=== PATIENT | male | born 1975 | race Caucasian/White ===

== ENCOUNTER → 2023-07-11 | Outpatient (CLI) | payer OTHER ==
[2023-07-11 20:29] LABS: Basophils # (A) 0.05 X 10*3/uL (0.00-0.10); Basophils % (A) 0.5 %; Eosinophils # (A) 0.14 X 10*3/uL (0.04-0.35); Eosinophils % (A) 1.4 %; HCT 47.4 % (39.6-50.0); HGB 16.5 g/dL (13.0-17.0); Lymphocytes # (A) 1.86 X 10*3/uL (0.90-5.00); Lymphocytes % (A) 18.9 %; MCH 29.8 pg (27.0-32.0); MCHC 34.8 g/dL (32.0-37.0); MCV 85.6 FL (80.0-97.0); Mean Platelet Volume 9.7 FL (9.5-12.2); Monocytes # (A) 0.52 X 10*3/uL (0.20-1.00); Monocytes % (A) 5.3 %; NRBC Per 100 WBC 0 X 10*3/uL (0.00-0.01); Neutrophils % (A) 73.2 %; Platelet Count 292 X 10*3/uL (140-440); RBC 5.54 X 10*6/uL (4.40-5.60); RDW 13.4 % (11.5-14.5); WBC 9.84 X 10*3/uL (4.50-10.00)
[2023-07-12 00:35] LABS: ALT 56 U/L (10-49); AST 32 U/L (14-35); Albumin 4.6 g/dL (3.8-4.9); Albumin/Globulin Ratio 1.64 Ratio (1.60-3.17); Alkaline Phosphatase 98 U/L (41-126); Calcium 10.3 mg/dL (8.7-10.3); Carbon Dioxide 21.9 mmol/L (21.6-31.8); Chloride 104 mmol/L (96-109); Globulin 2.8 g/dL (1.6-3.3); Glucose 125 mg/dL (70-110); Potassium 4.3 mmol/L (3.5-5.5); Prostate Specific Antigen 0.32 ng/mL (0.000-2.500); Sodium 140 mmol/L (135-145); Total Bilirubin 0.3 mg/dL (0.3-1.2); Total Protein 7.4 g/dL (6.2-8.2)
== END | disposition home or self-care (01) ==
LOC: LABWHC1 14:24
PROVIDERS: ATTEND Family Medicine
DX: Z12.5 Encounter for screening for malignant neoplasm of prostate (principal); R00.2 Palpitations
CPT/HCPCS: 36415; 80053; 83735; 84153; 84439; 84443; 84480; 85025; 93005

== ENCOUNTER 2023-07-27 12:39 | Emergency (ER) | payer OTHER ==
[2023-07-27 12:56] VITALS: TEMP 98.2
[2023-07-27] MEDS: SODIUM CHLORIDE 0.9% 1,000 ML IV STA ×2 (13:09→13:10)
--- NOTE | 2023-07-27 13:15 | ED ---
General Adult HPI - General Chief complaint: Dizziness Stated complaint: Dizziness Time Seen by Provider: 07/27/23 12:51 Source: patient, RN notes reviewed, old records reviewed Mode of arrival: EMS Limitations: no limitations - History of Present Illness Initial comments: Patient is a 48-year-old male who presents emergency department complaining of dizziness, lightheadedness. Patient states he also has intermittent palpitations. States this has happened previously due to his blood pressure medications. Have been decreased. Is on Minipress as well as losartan but is uncertain of the dosages. States he usually takes his blood pressure meds in the morning and then waits for a little bit for them to kick in and then proceeds upon his day. States that he had doctors appointments today so he left immediately after taking them. While at the doctor's office, he felt lightheaded and had an episode of emesis. They found his blood pressure was low. Transferred him here for further evaluation. He currently denies any acute complaints at this time presents for further evaluation at this time. Has been told he has sleep apnea.. States he does occasionally use marijuana Gummies which he used yesterday. Denies any other drug use. Denies chest pain or shortness of breath. Denies any abdominal pain, nausea, vomiting, fevers, chills, cough. Has no other acute complaints. States lightheadedness is resolved.Denies falling or hitting his head. - Related Data Home Medications Medication Instructions Recorded Confirmed Citalopram Hydrobromide [CeleXA] 20 mg PO DIRECTED 07/27/23 07/27/23 Losartan [Cozaar] 25 mg PO DIRECTED 07/27/23 07/27/23 Magnesium (Unknown Strength) 1 tab PO DAILY 07/27/23 07/27/23 Minipress (Unknown Strength) 1 dose PO DIRECTED 07/27/23 07/27/23 Multivitamins, Thera [Multivitamin 1 tab PO DAILY 07/27/23 07/27/23 (formulary)] Myrbetriq (Unknown Strength) 1 dose PO DIRECTED 07/27/23 07/27/23 Potassium Gluconate 90 mg PO DAILY 07/27/23 07/27/23 Unknown Mood Medication 1 dose PO DIRECTED 07/27/23 07/27/23 Allergies Allergy/AdvReac Type Severity Reaction Status Date / Time No Known Allergies Allergy Verified 07/27/23 12:47 Review of Systems ROS Statement: Those systems with pertinent positive or pertinent negative responses have been documented in the HPI. Review of Systems: CONST: Denies fever EYES: Denies blurry vision ENT: Denies nasal congestion C/V: Denies Chest pain RESP: Denies shortness of breath GI: Denies abdominal pain : Denies dysuria SKIN: Denies rash. MSK: Denies joint pain. NEURO: Denies headache ROS Other: All systems not noted in ROS Statement are negative. Past Medical History Past Medical History: Atrial Fibrillation, Hypertension History of Any Multi-Drug Resistant Organisms: None Reported Past Surgical History: Back Surgery Past Psychological History: Anxiety, Bipolar, Depression, PTSD Smoking Status: Vaper Past Alcohol Use History: Rare Past Drug Use History: Marijuana General Exam - General Exam Comments Initial Comments: General: Appears in no acute distress. HEAD: Normal with no signs of head trauma. EYES: PERRLA, EOMI, conjunctiva normal, no discharge. ENT: Hearing grossly intact, normal oropharynx. RESPIRATORY: Clear breath sounds bilaterally. No wheezes, rales, or rhonchi. Hypoxia when sleeping. Resolves when awake. Could be secondary to sleep apnea. C/V: Regular rate and rhythm. S1 and S2 auscultated, no edema, peripheral pulses 2+ and intact throughout hypotension with systolics in the upper 70s. ABD: Abd is soft, nontender, nondistended EXT: Normal range of motion, no obvious deformity SKIN: No rashes or lesions observed on exposed skin. NEURO: Alert and oriented x 4. Cranial nerves II-XII intact. No focal sensory or strength deficits. Limitations: no limitations Course Vital Signs 07/27/23 07/27/23 07/27/23 12:44 12:52 13:40 Temperature 98.2 F Pulse Rate 75 77 76 Respiratory 16 18 21 Rate Blood Pressure 75/53 79/52 101/62 O2 Sat by Pulse 90 L 93 L 97 Oximetry 07/27/23 07/27/23 07/27/23 13:45 14:00 14:15 Temperature Pulse Rate 76 80 83 Respiratory 16 16 19 Rate Blood Pressure 101/62 106/74 121/73 O2 Sat by Pulse 98 96 99 Oximetry 07/27/23 07/27/23 07/27/23 14:29 14:30 14:45 Temperature Pulse Rate 92 82 Respiratory 24 18 Rate Blood Pressure 119/82 119/82 119/73 O2 Sat by Pulse 95 95 96 Oximetry Medical Decision Making - Medical Decision Making Was pt. sent in by a medical professional or institution (, [facility], HAND INSERTER OPERATOR, urgent care, hospital, or fdc...) When possible be specific @ -No Did you speak to anyone other than the patient for history (EMS, parent, family, police, friend...)? What history was obtained from this source @ -No Did you review nursing and triage notes (agree or disagree)? Why? @ -I reviewed and agree with nursing and triage notes Were old charts reviewed (outside hosp., previous admission, EMS record, old EKG, old radiological studies, urgent care reports/EKG's, fdc records)? Report findings @ -No old charts were reviewed Differential Diagnosis (chest pain, altered mental status, abdominal pain women, abdominal pain men, vaginal bleeding, weakness, fever, dyspnea, syncope, headache, dizziness, GI bleed, back pain, seizure, CVA, palpatations, mental h ealth, musculoskeletal)? @ -Differential Dizziness: Benign paroxysmal positional Vertigo, Menieres disease, otitis media, acoustic neuroma, vertebrobasilar insufficiency, cerebellar stroke, encephalitis, hypovolemic, arrhythmia, coronary artery syndrome, anemia, this is not meant to be an all-inclusive list EKG interpreted by me (3pts min.). @ -As above X-rays interpreted by me (1pt min.). @ -None done CT interpreted by me (1pt min.). @ -CT angiogram of the chest negative for pulmonary embolism or other acute intrathoracic process. U/S interpreted by me (1pt. min.). @ -None done What testing was considered but not performed or refused? (CT, X-rays, U/S, labs)? Why? @ -None What meds were considered but not given or refused? Why? @ -None Did you discuss the management of the patient with other professionals (professionals i.e. L[facility]AR Morin, HAND INSERTER OPERATOR, lab, RT, psych nurse, social services aide, data entry assistant, teacher, policy officer, hospice case manager)? Give summary @ -No Was smoking cessation discussed for >3mins.? @ -No Was critical care preformed (if so, how long)? @ -No Were there social determinants of health that impacted care today? How? (Homelessness, low income, unemployed, alcoholism, drug addiction, transportation, low edu. Level, literacy, decrease access to med. care, retirement, rehab)? @ -No Was there de-escalation of care discussed even if they declined (Discuss DNR or withdrawal of care, Hospice)? DNR status @ -No What co-morbidities impacted this encounter? (DM, HTN, Smoking, COPD, CAD, Cancer, CVA, ARF, Chemo, Hep., AIDS, mental health diagnosis, sleep apnea, morbid obesity)? @ -None Was patient admitted / discharged? Hospital course, mention meds given and route, prescriptions, significant lab abnormalities, going to OR and other pertinent info. @ -Based on the patient's presentation and physical exam, presents with hypotension of unknown etiology. Patient currently has no complaints at this time. This has happened in the past for the patient and it was attributed to his blood pressure medications which were reduced. Currently has no acute complaints. We will obtain broad workup at this time. Patient was in agreement this plan. Patient was placed on 2 L nasal cannula oxygen because he is mildly hypoxic when sleeping in the upper 80s to 90% however when awake and talking, he ranges from 95 to 100%. Patient was in agreement with this plan. EKG shows no signs of acute ischemia.Patient's imaging negative for PE or other acute intrathoracic process. Laboratory studies are remarkable for mild increased lactic acid of 2.4 likely secondary to dehydration. Troponin undetectable. BNP undetectable. D-dimer within acceptable limits. UDS positive for benzos and marijuana. Following 2 L fluid bolus, patient's vital signs are improved. Blood pressure is within acceptable limits. He is ambulating without issues and would like to go home. He has no symptoms at this time. I discussed his blood pressure medications with him as this seems to be a recurrent issue and he already agreed with his PCP who is at today not to continue with the Minipress at this time. He will follow-up with his PCP for further guidance on antihypertensives. He otherwise would like to go home and I believe this is reasonable.Patient's blood pressure has improved. Patient is off oxygen and saturating normally. He has no acute complaints and has been ambulating throughout the department without any complaints. I instructed the patient to follow up with their PCP in the next 1-3 days. I explained that the patient should return to the emergency department if they experience any worsening symptoms. Strict return precautions were discussed with the patient. The patient expressed understanding of these instructions. I answered all questions that the patient had. The patient was discharged home in [good] condition with their prescriptions and follow up information. UDS returned positive for benzodiazepines as well as THC. Undiagnosed new problem with uncertain prognosis? @ -No Drug Therapy requiring intensive monitoring for toxicity (Heparin, Nitro, Ins ulin, Cardizem)? @ -No Were any procedures done? @ -No Diagnosis/symptom? @ -Medication side effect, lightheadedness, dehydration Acute, or Chronic, or Acute on Chronic? @ -Acute Uncomplicated (without systemic symptoms) or Complicated (systemic symptoms)? @ -Complicated Side effects of treatment? @ -Yes, antihypertensive medication caused hypotension for the patient. Exacerbation, Progression, or Severe Exacerbation] @ -No Poses a threat to life or bodily function? @ -Unlikely - Lab Data Result diagrams: 07/27/23 13:13 07/27/23 13:13 Lab Results 07/27/23 07/27/23 07/27/23 Range/Units 13:13 13:13 13:13 WBC 5.7 (3.8-10.6) k/uL RBC 4.63 (4.30-5.90) m/uL Hgb 14.0 (13.0-17.5) gm/dL Hct 41.9 (39.0-53.0) % MCV 90.5 (80.0-100.0) fL MCH 30.1 (25.0-35.0) pg MCHC 33.3 (31.0-37.0) g/dL RDW 13.2 (11.5-15.5) % Plt Count 157 (150-450) k/uL MPV 7.1 Neutrophils % 71 % Lymphocytes % 23 % Monocytes % 3 % Eosinophils % 2 % Basophils % 1 % Neutrophils # 4.0 (1.3-7.7) k/uL Lymphocytes # 1.3 (1.0-4.8) k/uL Monocytes # 0.2 (0-1.0) k/uL Eosinophils # 0.1 (0-0.7) k/uL Basophils # 0.0 (0-0.2) k/uL PT 11.1 (10.0-12.5) sec INR 1.0 (<1.2) APTT 23.1 (22.0-30.0) sec D-Dimer 0.34 (<0.60) mg/L FEU Sodium 135 L (137-145) mmol/L Potassium 3.9 (3.5-5.1) mmol/L Chloride 106 (98-107) mmol/L Carbon Dioxide 21 L (22-30) mmol/L Anion Gap 8 mmol/L BUN 14 (9-20) mg/dL Creatinine 0.88 (0.66-1.25) mg/dL Est GFR (CKD-EPI)AfAm >90 (>60 ml/min/1.73 sqM) Est GFR (CKD-EPI)NonAf >90 (>60 ml/min/1.73 sqM) Glucose 174 H (74-99) mg/dL Plasma Lactic Acid Joni (0.7-2.0) mmol/L Calcium 8.3 L (8.4-10.2) mg/dL Magnesium 1.7 (1.6-2.3) mg/dL Total Bilirubin 0.5 (0.2-1.3) mg/dL AST 29 (17-59) U/L ALT 29 (4-49) U/L Alkaline Phosphatase 76 (38-126) U/L Ammonia (<30) umol/L Troponin I (0.000-0.034) ng/mL NT-Pro-B Natriuret Pep <20 pg/mL Total Protein 6.2 L (6.3-8.2) g/dL Albumin 3.6 (3.5-5.0) g/dL Urine Color Urine Appearance (Clear) Urine pH (5.0-8.0) Ur Specific [place] (1.001-1.035) Urine Protein (Negative) Urine Glucose (UA) (Negative) Urine Ketones (Negative) Urine Blood (Negative) Urine Nitrite (Negative) Urine Bilirubin (Negative) Urine Urobilinogen (<2.0) mg/dL Ur Leukocyte Esterase (Negative) Urine Opiates Screen (NotDetected) Ur Oxycodone Screen (NotDetected) Urine Methadone Screen (NotDetected) Ur Barbiturates Screen (NotDetected) U Tricyclic Antidepress (NotDetected) Ur Phencyclidine Scrn (NotDetected) Ur Amphetamines Screen (NotDetected) U Methamphetamines Scrn (NotDetected) U Benzodiazepines Scrn (NotDetected) Urine Cocaine Screen (NotDetected) U Marijuana (THC) Screen (NotDetected) Serum Alcohol <10 mg/dL Influenza Type A (PCR) (Not Detectd) Influenza Type B (PCR) (Not Detectd) RSV (PCR) (Not Detectd) SARS-CoV-2 (PCR) (Not Detectd) 07/27/23 07/27/23 07/27/23 Range/Units 13:13 13:13 13:13 WBC (3.8-10.6) k/uL RBC (4.30-5.90) m/uL Hgb (13.0-17.5) gm/dL Hct (39.0-53.0) % MCV (80.0-100.0) fL MCH (25.0-35.0) pg MCHC (31.0-37.0) g/dL RDW (11.5-15.5) % Plt Count (150-450) k/uL MPV Neutrophils % % Lymphocytes % % Monocytes % % Eosinophils % % Basophils % % Neutrophils # (1.3-7.7) k/uL Lymphocytes # (1.0-4.8) k/uL Monocytes # (0-1.0) k/uL Eosinophils # (0-0.7) k/uL Basophils # (0-0.2) k/uL PT (10.0-12.5) sec INR (<1.2) APTT (22.0-30.0) sec D-Dimer (<0.60) mg/L FEU Sodium (137-145) mmol/L Potassium (3.5-5.1) mmol/L Chloride (98-107) mmol/L Carbon Dioxide (22-30) mmol/L Anion Gap mmol/L BUN (9-20) mg/dL Creatinine (0.66-1.25) mg/dL Est GFR (CKD-EPI)AfAm (>60 ml/min/1.73 sqM) Est GFR (CKD-EPI)NonAf (>60 ml/min/1.73 sqM) Glucose (74-99) mg/dL Plasma Lactic Acid Joni 2.4 H* (0.7-2.0) mmol/L Calcium (8.4-10.2) mg/dL Magnesium (1.6-2.3) mg/dL Total Bilirubin (0.2-1.3) mg/dL AST (17-59) U/L ALT (4-49) U/L Alkaline Phosphatase (38-126) U/L Ammonia 12 (<30) umol/L Troponin I <0.012 (0.000-0.034) ng/mL NT-Pro-B Natriuret Pep pg/mL Total Protein (6.3-8.2) g/dL Albumin (3.5-5.0) g/dL Urine Color Urine Appearance (Clear) Urine pH (5.0-8.0) Ur Specific [place] (1.001-1.035) Urine Protein (Negative) Urine Glucose (UA) (Negative) Urine Ketones (Negative) Urine Blood (Negative) Urine Nitrite (Negative) Urine Bilirubin (Negative) Urine Urobilinogen (<2.0) mg/dL Ur Leukocyte Esterase (Negative) Urine Opiates Screen (NotDetected) Ur Oxycodone Screen (NotDetected) Urine Methadone Screen (NotDetected) Ur Barbiturates Screen (NotDetected) U Tricyclic Antidepress (NotDetected) Ur Phencyclidine Scrn (NotDetected) Ur Amphetamines Screen (NotDetected) U Methamphetamines Scrn (NotDetected) U Benzodiazepines Scrn (NotDetected) Urine Cocaine Screen (NotDetected) U Marijuana (THC) Screen (NotDetected) Serum Alcohol mg/dL Influenza Type A (PCR) Not Detected (Not Detectd) Influenza Type B (PCR) Not Detected (Not Detectd) RSV (PCR) Not Detected (Not Detectd) SARS-CoV-2 (PCR) Not Detected (Not Detectd) 07/27/23 07/27/23 Range/Units 14:38 14:38 WBC (3.8-10.6) k/uL RBC (4.30-5.90) m/uL Hgb (13.0-17.5) gm/dL Hct (39.0-53.0) % MCV (80.0-100.0) fL MCH (25.0-35.0) pg MCHC (31.0-37.0) g/dL RDW (11.5-15.5) % Plt Count (150-450) k/uL MPV Neutrophils % % Lymphocytes % % Monocytes % % Eosinophils % % Basophils % % Neutrophils # (1.3-7.7) k/uL Lymphocytes # (1.0-4.8) k/uL Monocytes # (0-1.0) k/uL Eosinophils # (0-0.7) k/uL Basophils # (0-0.2) k/uL PT (10.0-12.5) sec INR (<1.2) APTT (22.0-30.0) sec D-Dimer (<0.60) mg/L FEU Sodium (137-145) mmol/L Potassium (3.5-5.1) mmol/L Chloride (98-107) mmol/L Carbon Dioxide (22-30) mmol/L Anion Gap mmol/L BUN (9-20) mg/dL Creatinine (0.66-1.25) mg/dL Est GFR (CKD-EPI)AfAm (>60 ml/min/1.73 sqM) Est GFR (CKD-EPI)NonAf (>60 ml/min/1.73 sqM) Glucose (74-99) mg/dL Plasma Lactic Acid Joni (0.7-2.0) mmol/L Calcium (8.4-10.2) mg/dL Magnesium (1.6-2.3) mg/dL Total Bilirubin (0.2-1.3) mg/dL AST (17-59) U/L ALT (4-49) U/L Alkaline Phosphatase (38-126) U/L Ammonia (<30) umol/L Troponin I (0.000-0.034) ng/mL NT-Pro-B Natriuret Pep pg/mL Total Protein (6.3-8.2) g/dL Albumin (3.5-5.0) g/dL Urine Color Colorless Urine Appearance Clear (Clear) Urine pH 6.5 (5.0-8.0) Ur Specific [place] 1.038 H (1.001-1.035) Urine Protein Negative (Negative) Urine Glucose (UA) Negative (Negative) Urine Ketones Negative (Negative) Urine Blood Negative (Negative) Urine Nitrite Negative (Negative) Urine Bilirubin Negative (Negative) Urine Urobilinogen <2.0 (<2.0) mg/dL Ur Leukocyte Esterase Negative (Negative) Urine Opiates Screen Not Detected (NotDetected) Ur Oxycodone Screen Not Detected (NotDetected) Urine Methadone Screen Not Detected (NotDetected) Ur Barbiturates Screen Not Detected (NotDetected) U Tricyclic Antidepress Not Detected (NotDetected) Ur Phencyclidine Scrn Not Detected (NotDetected) Ur Amphetamines Screen Not Detected (NotDetected) U Methamphetamines Scrn Not Detected (NotDetected) U Benzodiazepines Scrn Detected H (NotDetected) Urine Cocaine Screen Not Detected (NotDetected) U Marijuana (THC) Screen Detected H (NotDetected) Serum Alcohol mg/dL Influenza Type A (PCR) (Not Detectd) Influenza Type B (PCR) (Not Detectd) RSV (PCR) (Not Detectd) SARS-CoV-2 (PCR) (Not Detectd) - EKG Data -: EKG Interpreted by Me EKG Comments: 12-lead Electrocardiogram Interpretation Note EKG was reviewed and interpreted by myself. 12-lead ECG performed at 1255 is interpreted by me as revealing normal sinus rhythm at a rate of 76 beats per minute. [place] is normal. [place] interval is 170 ms, QRS duration is 109 ms, QTc is 447 ms.. There were no ST or T wave abnormalities to suggest myocardial ischemia or injury. R wave progression across the precordium was satisfactory. By my interpretation this EKG is non-diagnostic for acute ischemia. Disposition Clinical Impression: Lightheadedness, Medication side effect, Dehydration Disposition: HOME SELF-CARE Condition: Good Instructions (If sedation given, give patient instructions): Dizziness (ED) Is patient prescribed a controlled substance at d/c from ED?: No Referrals: [facility],Clinic [Primary Care Provider] - 1-2 days Time of Disposition: 14:51
[2023-07-27 13:19] LABS: Basophils % (A) 1 %; Eosinophils # (A) 0.1 k/uL (0-0.7); Eosinophils % (A) 2 %; HCT 41.9 % (39.0-53.0); Lymphocytes # (A) 1.3 k/uL (1.0-4.8); Lymphocytes % (A) 23 %; MCH 30.1 pg (25.0-35.0); MCHC 33.3 g/dL (31.0-37.0); MCV 90.5 fL (80.0-100.0); Mean Platelet Volume 7.1; Monocytes # (A) 0.2 k/uL (0-1.0); Monocytes % (A) 3 %; Neutrophils % (A) 71 %; Platelet Count 157 k/uL (150-450); RBC 4.63 m/uL (4.30-5.90); RDW 13.2 % (11.5-15.5); WBC 5.7 k/uL (3.8-10.6)
[2023-07-27 13:33] LABS: Partial Thromboplastin Time 23.1 sec (22.0-30.0); Prothrombin Time 11.1 sec (10.0-12.5)
[2023-07-27 13:35] LABS: ALT 29 U/L (4-49); AST 29 U/L (17-59); African American GFR (CKD) >90 (>60 ml/min/1.73 sqM); Albumin 3.6 g/dL (3.5-5.0); Alcohol <10 mg/dL; Alkaline Phosphatase 76 U/L (38-126); Anion Gap 8 mmol/L; Blood Urea Nitrogen 14 mg/dL (9-20); Calcium 8.3 mg/dL (8.4-10.2); Carbon Dioxide 21 mmol/L (22-30); Chloride 106 mmol/L (98-107); Glucose 174 mg/dL (74-99); Magnesium 1.7 mg/dL (1.6-2.3); Non-African American GFR(CKD) >90 (>60 ml/min/1.73 sqM); Potassium 3.9 mmol/L (3.5-5.1); Sodium 135 mmol/L (137-145); Total Bilirubin 0.5 mg/dL (0.2-1.3); Total Protein 6.2 g/dL (6.3-8.2)
[2023-07-27 13:43] LABS: NT-Pro-B-Type Natriuretic Pept <20 pg/mL
--- NOTE | 2023-07-27 13:56 | CT ---
CTA CHEST EXAMINATION TYPE: CT chest angio for PE DATE OF EXAM: 07/27/2023 INDICATION: Eval for PE CT DLP: 692.8 mGycm, Automated exposure control for dose reduction was used. CONTRAST: Patient injected with 100 ml mL of Isovue 370. COMPARISON: None TECHNIQUE: CT of the chest is performed on a spiral scan at 2 mm thick sections. Study is performed with intravenous contrast timed for evaluation for pulmonary embolism. This will limit additional po rtions of the evaluation. 3-D MIP images reconstructed by the technologist are reviewed on the compu ter in the coronal and sagittal planes. FINDINGS: No persistent filling defects are evident to suggest an acute pulmonary embolism. No mediastinal or hilar adenopathy enlarged by CT criteria is evident. The ascending aorta diameter at the level of the main pulmonary artery is 3.0 cm. The main pulmonary artery diameter at the bifurcation is 2.7 cm. Lung windows are clear. Limited CT sections were through the upper abdomen. Upper abdomen appears unremarkable. IMPRESSION: 1. No acute pulmonary embolism. 2. No acute pulmonary process.
[2023-07-27 14:06] LABS: Lactic Acid, Venous 2.4 mmol/L (0.7-2.0)
[2023-07-27 14:47] LABS: Appearance,Urine Clear (Clear); Bilirubin,Urine Negative (Negative); Blood,Urine Negative (Negative); Color,Urine Colorless; Glucose,Urine (UA) Negative (Negative); Ketones,Urine Negative (Negative); Leukocyte Esterase,Urine Negative (Negative); Nitrite,Urine Negative (Negative); PH, Urine 6.5 (5.0-8.0); Protein,Urine Negative (Negative); Specific Gravity,Urine 1.038 (1.001-1.035); Urobilinogen,Urine <2.0 mg/dL (<2.0)
[2023-07-27 14:58] LABS: Amphetamine Screen,Urine Not Detected (NotDetected); Barbiturate Screen,Urine Not Detected (NotDetected); Benzodiazepines Screen,Urine Detected (NotDetected); Cocaine Screen,Urine Not Detected (NotDetected); Methadone Screen, Urine Not Detected (NotDetected); Opiate Screen,Urine Not Detected (NotDetected); Oxycodone Screen, Urine Not Detected (NotDetected); Phencyclidine Screen,Urine Not Detected (NotDetected); Tricyclic Antidepressant,Urine Not Detected (NotDetected); Urn Cannabinoid Scrn Detected (NotDetected)
[2023-07-27 15:12] VITALS: BP 119/73; PULSE 82; RESP 18
== END 2023-07-27 15:00 | disposition home or self-care (01) ==
LOC: EC 12:39
DX: E86.0 Dehydration (principal); T50.905A Adverse effect of unspecified drugs, medicaments and biological substances, initial encounter; I95.9 Hypotension, unspecified; F17.290 Nicotine dependence, other tobacco product, uncomplicated; Z11.52 Encounter for screening for COVID-19; Z79.899 Other long term (current) drug therapy
CPT/HCPCS: 36415; 93005; 85379; 83880; 80053; 82140; 83605; 83735; 84484; 85025; 85610; 85730; 81003; 80306; 80320; 87636; 71275; 99285; 96360; Q9967

== ENCOUNTER 2023-10-31 13:49 | Observation (INO) | payer OTHER ==
[2023-10-31 14:12] LABS: Basophils # (A) 0.1 k/uL (0-0.2); Basophils % (A) 1 %; Eosinophils # (A) 0.1 k/uL (0-0.7); Eosinophils % (A) 1 %; HCT 49.8 % (39.0-53.0); HGB 16.9 gm/dL (13.0-17.5); Lymphocytes % (A) 21 %; MCV 88.5 fL (80.0-100.0); Mean Platelet Volume 6.9; Monocytes # (A) 0.5 k/uL (0-1.0); Monocytes % (A) 6 %; Neutrophils # (A) 6.6 k/uL (1.3-7.7); Neutrophils % (A) 70 %; Platelet Count 296 k/uL (150-450); RBC 5.63 m/uL (4.30-5.90); RDW 12.9 % (11.5-15.5); WBC 9.4 k/uL (3.8-10.6)
[2023-10-31 14:26] LABS: INR 0.9 (<1.2); Partial Thromboplastin Time 24.7 sec (22.0-30.0); Prothrombin Time 10.5 sec (10.0-12.5)
--- NOTE | 2023-10-31 14:26 | XR ---
EXAMINATION TYPE: XR chest 2V DATE OF EXAM: 10/31/2023 2:16 PM CLINICAL INDICATION:Male, 48 years old with history of Chest Pain; [facility] COMPARISON: No recent comparisons. TECHNIQUE: XR chest 2V Frontal and lateral views of the chest. FINDINGS: Lungs/Pleura: There is no evidence of pleural effusion, focal consolidation, or pneumothorax. Pulmonary vascularity: Unremarkable. Heart/mediastinum: Cardiomediastinal silhouette is unremarkable. Musculoskeletal: No acute osseous pathology. Other findings: None Lines/Tubes: IMPRESSION: No acute cardiopulmonary disease/process.
[2023-10-31 14:48] LABS: ALT 47 U/L (4-49); African American GFR (CKD) >90 (>60 ml/min/1.73 sqM); Anion Gap 9 mmol/L; Blood Urea Nitrogen 13 mg/dL (9-20); Calcium 9.2 mg/dL (8.4-10.2); Carbon Dioxide 18 mmol/L (22-30); Chloride 111 mmol/L (98-107); Glucose 105 mg/dL (74-99); Magnesium 2.1 mg/dL (1.6-2.3); Non-African American GFR(CKD) >90 (>60 ml/min/1.73 sqM); Sodium 138 mmol/L (137-145); Total Bilirubin 0.9 mg/dL (0.2-1.3)
--- NOTE | 2023-10-31 14:50 | ED ---
Chest Pain HPI - General Chief Complaint: Chest Pain Stated Complaint: Tachy,low O2 Time Seen by Provider: 10/31/23 14:01 Source: patient, RN notes reviewed Mode of arrival: ambulatory Limitations: no limitations - History of Present Illness Initial Comments: This is a 48-year-old male with a past medical history of anxiety and hypertension who presents emergency department chief complaint of chest pain, shortness of breath, heart palpitations over the past few days. Patient states that since Monday he will experience intermittent left sided chest pain that will last for a few minutes and pain of his left hand during this time. He also states that he has been experiencing shortness of breath as well is intermittent either with activity or at rest. He denies personal history of TX, CVA, DVT or PE. Denies recent prolonged travel, bilateral lower extremity edema or pain. He is on ACEi and CCB for blood pressure. - Related Data Home Medications Medication Instructions Recorded Confirmed Citalopram Hydrobromide [CeleXA] 20 mg PO HS 07/27/23 10/31/23 ARIPiprazole [Abilify] 5 mg PO HS 10/31/23 10/31/23 Losartan [Cozaar] 50 mg PO HS 10/31/23 10/31/23 dilTIAZem HCL 120 mg PO HS 10/31/23 10/31/23 Allergies Allergy/AdvReac Type Severity Reaction Status Date / Time No Known Allergies Allergy Verified 10/31/23 16:10 Review of Systems ROS Statement: Those systems with pertinent positive or pertinent negative responses have been documented in the HPI. ROS Other: All systems not noted in ROS Statement are negative. Past Medical History Past Medical History: Atrial Fibrillation, Hypertension History of Any Multi-Drug Resistant Organisms: None Reported Past Surgical History: Back Surgery Past Psychological History: Anxiety, Bipolar, Depression, PTSD Smoking Status: Never smoker, Vaper Past Alcohol Use History: None Reported Past Drug Use History: Marijuana General Exam Limitations: no limitations General appearance: alert, in no apparent distress Head exam: Present: atraumatic, normocephalic, normal inspection Eye exam: Present: normal appearance, PERRL, EOMI. Absent: scleral icterus, conjunctival injection, periorbital swelling ENT exam: Present: normal exam, mucous membranes moist Neck exam: Present: normal inspection. Absent: tenderness, meningismus, lymphadenopathy Respiratory exam: Present: normal lung sounds bilaterally. Absent: respiratory distress, wheezes, rales, rhonchi, stridor Cardiovascular Exam: Present: regular rate, normal rhythm, normal heart sounds. Absent: systolic murmur, diastolic murmur, rubs, gallop, clicks GI/Abdominal exam: Present: soft, normal bowel sounds. Absent: distended, tenderness, guarding, rebound, rigid Extremities exam: Present: normal inspection, full ROM, normal capillary refill. Absent: tenderness, pedal edema, joint swelling, calf tenderness Back exam: Present: normal inspection Neurological exam: Present: alert, oriented X3, CN II-XII intact Psychiatric exam: Present: normal affect, normal mood Skin exam: Present: warm, dry, intact, normal color. Absent: rash Course Vital Signs 10/31/23 10/31/23 10/31/23 13:54 15:05 15:18 Temperature 98.2 F Pulse Rate 100 98 81 Respiratory 18 16 16 Rate Blood Pressure 139/96 167/109 168/122 O2 Sat by Pulse 97 98 95 Oximetry 10/31/23 10/31/23 15:49 16:33 Temperature Pulse Rate 81 Respiratory 18 Rate Blood Pressure 139/96 118/90 O2 Sat by Pulse 97 Oximetry Chest Pain MDM - MDM Was pt. sent in by a medical professional or institution (Dr. PA, CONCRETE PAVING SUPERVISOR, urgent care, hospital, or fci...) When possible be specific @ -No Did you speak to anyone other than the patient for history (EMS, parent, family, police, friend...)? What history was obtained from this source @ -No Did you review nursing and triage notes (agree or disagree)? Why? @ -I reviewed and agree with nursing and triage notes Were old charts reviewed (outside hosp., previous admission, EMS record, old EKG, old radiological studies, urgent care reports/EKG's, fci records)? Report findings @ -No old charts were reviewed Differential Diagnosis (chest pain, altered mental status, abdominal pain women, abdominal pain men, vaginal bleeding, weakness, fever, dyspnea, syncope, headache, dizziness, GI bleed, back pain, seizure, CVA, palpatations, mental health, musculoskeletal)? @ -Differential Chest Pain: Stable Angina, Unstable Angina, STEMI, NSTEMI Aortic Dissection, Pneumothorax, Musculoskeletal, Esophageal Spasm GERD, Cholecystitis, Pancreatitis, Zoster, this is not meant to be an all-inclusive list. EKG interpreted by me (3pts min.). @ -Completed at 1353, sinus rhythm, ventricular rate 97, MT interval 153, QTc 402. No acute signs of ischemia. X-rays interpreted by me (1pt min.). @ -Chest x-ray no acute cardiopulmonary process or disease. CT interpreted by me (1pt min.). @ -None done U/S interpreted by me (1pt. min.). @ -None done What testing was considered but not performed or refused? (CT, X-rays, U/S, labs)? Why? @ -None What meds were considered but not given or refused? Why? @ -None Did you discuss the management of the patient with other professionals (prof perdue i.e. , PA, CONCRETE PAVING SUPERVISOR, lab, RT, psych nurse, sexual assault social worker, stacker and sorter operator, teacher, community relations officer, caseworker intake)? Give summary @ -i spoke to mid-level provider with [facility], Destiny Castaneda, in regard to the patient's presentation and chest pain. Patient accepted for admission with cardiology on consult. Was smoking cessation discussed for >3mins.? @ -No Was critical care preformed (if so, how long)? @ -No Were there social determinants of health that impacted care today? How? (Homelessness, low income, unemployed, alcoholism, drug addiction, transportation, low edu. Level, literacy, decrease access to med. care, detention, rehab)? @ -No Was there de-escalation of care discussed even if they declined (Discuss DNR or withdrawal of care, Hospice)? DNR status @ -No What co-morbidities impacted this encounter? (DM, HTN, Smoking, COPD, CAD, Cancer, CVA, ARF, Chemo, Hep., AIDS, mental health diagnosis, sleep apnea, morbid obesity)? @ -None Was patient admitted / discharged? Hospital course, mention meds given and route, prescriptions, significant lab abnormalities, going to OR and other pertinent info. @ -admitted- 48-year-old male with chest pain. On patient's arrival to the emergency department he is found to be hypertensive with a BP of 139/96 and a pulse rate of 100. On my evaluation of the patient, he is still hypertensive with a blood pressure 160/122 and a heart rate of 81. Patient's chest pain is not reproducible on palpation. He states that he has had 2 episodes of this chest pain while he has been in the emergency department here. Better with an IV dose of metoprolol for HTN and tachycardia. EKG no acute ischemic changes. CBC within normal limits, coagulation profile including D-dimer within normal limits. Troponin nonelevated at less than 0.012. Mild hyperkalemia 5.6 which is a hemolyzed specimen. Evaluation, patient's blood pressure has responded to metoprolol. Patient's heart score is low however his symptoms of chest pain are concerning for ACS. He will be admitted to internal medicine with cardiology on consult for further evaluation. Case discussed with JOHNNY Dixon who accepts admission. Discussed with attending, Dr. Malone. Undiagnosed new problem with uncertain prognosis? @ -No Drug Therapy requiring intensive monitoring for toxicity (Heparin, Nitro, Insulin, Cardizem)? @ -No Were any procedures done? @ -No Diagnosis/symptom? @ -chest pain, hypertension Acute, or Chronic, or Acute on Chronic? @ -Acute Uncomplicated (without systemic symptoms) or Complicated (systemic symptoms)? @ -complicated Side effects of treatment? @ -No Exacerbation, Progression, or Severe Exacerbation? @ -No Poses a threat to life or bodily function? How? (Chest pain, [place], [place], pneumonia, PE, COPD, DKA, ARF, appy, cholecystitis, CVA, Diverticulitis, Homicidal, Suicidal, threat to staff... and all critical care pts) @ -potentially, Untreated ACS can lead to multiorgan system dysfunction and possible . Disposition Clinical Impression: Chest pain, Hypertension Disposition: ADMITTED IP TO THIS [facility] Condition: Good Decision to Admit Reason: Admit from EC Decision Date: 10/31/23 Decision Time: 17:03
[2023-10-31 14:52] LABS: AST 59 U/L (17-59); Albumin 4.8 g/dL (3.5-5.0); Alkaline Phosphatase 71 U/L (38-126); Potassium 5.6 mmol/L (3.5-5.1); Total Protein 7.9 g/dL (6.3-8.2)
[2023-10-31] MEDS: METOPROLOL TARTRATE 5 MG/5 ML VIAL IVP STA (15:14)
[2023-10-31] MEDS ORDERED: NALOXONE 0.4 MG/ML 1 ML VIAL IV PRN (17:06)
[2023-10-31] MEDS: DILTIAZEM ORAL 60 MG TAB PO SCH (21:10)
[2023-10-31] MEDS: LOSARTAN 50 MG TAB PO SCH (21:10)
[2023-10-31] MEDS: ARIPiprazole 5 MG TAB PO SCH (21:10)
[2023-10-31] MEDS: CITALOPRAM HYDROBROMIDE 20 MG TAB PO SCH (21:10)
[2023-10-31] MEDS: ALPRAZolam 0.5 MG TAB PO STA (21:36)
[2023-11-01 08:32] LABS: Basophils # (A) 0.05 X 10*3/uL (0.00-0.10); Basophils % (A) 0.5 %; Eosinophils # (A) 0.25 X 10*3/uL (0.04-0.35); Eosinophils % (A) 2.4 %; HCT 47.7 % (39.6-50.0); HGB 16.4 g/dL (13.0-17.0); Lymphocytes # (A) 2.97 X 10*3/uL (0.90-5.00); Lymphocytes % (A) 28.5 %; MCH 30.2 pg (27.0-32.0); MCHC 34.4 g/dL (32.0-37.0); MCV 87.8 FL (80.0-97.0); Monocytes # (A) 0.82 X 10*3/uL (0.20-1.00); Monocytes % (A) 7.9 %; NRBC Per 100 WBC 0 X 10*3/uL (0.00-0.01); Neutrophils # (A) 6.27 X 10*3/uL (1.80-7.70); Neutrophils % (A) 60.1 %; Platelet Count 225 X 10*3/uL (140-440); RBC 5.43 X 10*6/uL (4.40-5.60); WBC 10.42 X 10*3/uL (4.50-10.00)
[2023-11-01 08:58] LABS: ALT 45 U/L (10-49); AST 36 U/L (14-35); Albumin 4.5 g/dL (3.8-4.9); Albumin/Globulin Ratio 1.88 Ratio (1.60-3.17); Alkaline Phosphatase 91 U/L (41-126); BUN/Creat Ratio 14.56 Ratio (12.00-20.00); Blood Urea Nitrogen 13.1 mg/dL (9.0-27.0); Calcium 9.1 mg/dL (8.7-10.3); Carbon Dioxide 24.4 mmol/L (21.6-31.8); Chloride 104 mmol/L (96-109); Globulin 2.4 g/dL (1.6-3.3); Glucose 104 mg/dL (70-110); Potassium 4.4 mmol/L (3.5-5.5); Sodium 139 mmol/L (135-145); Total Bilirubin 0.5 mg/dL (0.3-1.2); Total Protein 6.9 g/dL (6.2-8.2)
--- NOTE | 2023-11-01 09:47 | P.CRDCN ---
History of Present Illness Consult date: 11/01/23 Consult reason: chest pain History of present illness: This is a 48-year-old male with no previous cardiac history and does not follow with a sack sorter. He does have history of hypertension. Patient states that yesterday he was feeling tired and his heart rate was in the 120s and his blood pressure was also high for the last couple of days. He states he has had this before and it seems like he cycles through it and then it gets better. He monitors his heart rate on his watch. He states his heart rate was elevated in 120s and blood pressure 177/111. He also states he had a little bit of chest pain and pain also in his left wrist. He had a stress test done at the [facility] 3 years ago. He denies any smoking history no alcohol abuse. He does use marijuana Gummies but has not for the last couple of days. Discussed treatment options and patient is agreeable to move forward with stress test today. Regarding atrial fibrillation as listed on the nursing history, patient states that his PCP could hear he had an irregular heartbeat but EKG did not confirm this. Blood pressure 122/80, heart rate 72, pulse ox 94% on room air, afebrile. Upon arrival, blood pressure was up to 168/122 and patient is s/p Xanax and IV Lopressor 2.5 mg. EKG: Sinus rhythm with no acute ST-T wave changes. Chest x-ray: No acute process Laboratory studies: WBC 10.4, hemoglobin 16.4. Electrolytes are normal although potassium on arrival was 5.6 and CO2 18. Creatinine 0.9. Troponins are negative x 2. Viral panel is negative. Home cardiac medications: Diltiazem 120 mg at bedtime, losartan 50 mg at bedtime. Review Of Systems: At the time of my exam: CONSTITUTIONAL: Denies fever or chills. HEENT: Denies blurred vision, vision changes, or eye pain. Denies hemoptysis CARDIOVASCULAR: Denies chest pain. Denies orthopnea. Denies PND. Denies palpi tations RESPIRATORY: Denies shortness of breath. GASTROINTESTINAL: Denies abdominal pain. Denies nausea or vomiting. HEMATOLOGIC: Denies bleeding disorders. GENITOURINARY: Denies any blood in urine. SKIN: Denies puritis. Denies rash. Physical examination: Gen: This is a 48-year-old male in no acute distress VS: reviewed HEENT: Head is atraumatic, normocephalic. Pupils equal, round. Sclerae is anicteric. NECK: Supple. No JVD. LUNGS: Clear to auscultation. No wheezes or rhonchi. No intercostal retractions. HEART: Regular rate and rhythm. No murmur. ABDOMEN: Soft No tenderness. EXTREMITIES: No pedal edema. No calf tenderness. NEUROLOGICAL: Patient is awake, alert and oriented x3. Assessment: Atypical chest pain, acute coronary syndrome ruled out Hypertension Plan: Resume patient's home cardiac medications Obtain stress echocardiogram Obtain 2-D echocardiogram and Doppler study to assess cardiac structure and function If testing is unremarkable, patient is cleared for discharge home today. Thank you kindly for this consultation. Nurse practitioner note has been reviewed, I agree with documented findings and plan of care. Patient was seen and examined. Past Medical History Past Medical History: Atrial Fibrillation, Hypertension Additional Past Medical History / Comment(s): brain anuerysm (pt states they are monitoring outpatient) History of Any Multi-Drug Resistant Organisms: None Reported Past Surgical History: Back Surgery Past Psychological History: Anxiety, Bipolar, Depression, PTSD Smoking Status: Former smoker, Vaper Past Alcohol Use History: None Reported Past Drug Use History: Marijuana Additional Drug Use History / Comment(s): edibles Medications and Allergies Home Medications Medication Instructions Recorded Confirmed Type Citalopram Hydrobromide [CeleXA] 20 mg PO HS 07/27/23 10/31/23 History ARIPiprazole [Abilify] 5 mg PO HS 10/31/23 10/31/23 History Losartan [Cozaar] 50 mg PO HS 10/31/23 10/31/23 History dilTIAZem HCL 120 mg PO HS 10/31/23 10/31/23 History Allergies Allergy/AdvReac Type Severity Reaction Status Date / Time No Known Allergies Allergy Verified 10/31/23 16:10 Physical Exam Vitals: Vital Signs Temp Pulse Pulse Resp BP BP Pulse Ox 11/01/23 07:15 97.4 F L 72 17 122/80 94 L 11/01/23 02:18 97.6 F 79 16 121/79 98 10/31/23 20:35 98.2 F 90 16 123/82 96 10/31/23 20:00 100 20 155/87 96 07/23/24 19:10 93 16 159/97 95 10/31/23 17:10 80 20 130/97 98 10/31/23 16:33 81 18 118/90 97 10/31/23 15:49 139/96 10/31/23 15:18 81 16 168/122 95 10/31/23 15:05 98 16 167/109 98 10/31/23 13:54 98.2 F 100 18 139/96 97 Intake and Output 10/31/23 11/01/23 11/01/23 22:59 06:59 14:59 Other: # Voids 1 2 Weight 127.006 kg Results 11/01/23 05:43 11/01/23 05:43 Cardiac Enzymes 10/31/23 10/31/23 10/31/23 Range/Units 14:02 14:02 17:34 AST 59 (17-59) U/L Troponin I <0.012 <0.012 (0.000-0.034) ng/mL Coagulation 10/31/23 Range/Units 14:02 PT 10.5 (10.0-12.5) sec APTT 24.7 (22.0-30.0) sec CBC 10/31/23 Range/Units 14:02 WBC 9.4 (3.8-10.6) k/uL RBC 5.63 (4.30-5.90) m/uL Hgb 16.9 (13.0-17.5) gm/dL Hct 49.8 (39.0-53.0) % Plt Count 296 (150-450) k/uL Comprehensive Metabolic Panel 10/31/23 Range/Units 14:02 Sodium 138 (137-145) mmol/L Potassium 5.6 H (3.5-5.1) mmol/L Chloride 111 H (98-107) mmol/L Carbon Dioxide 18 L (22-30) mmol/L BUN 13 (9-20) mg/dL Creatinine 0.66 (0.66-1.25) mg/dL Glucose 105 H (74-99) mg/dL Calcium 9.2 (8.4-10.2) mg/dL AST 59 (17-59) U/L ALT 47 (4-49) U/L Alkaline Phosphatase 71 (38-126) U/L Total Protein 7.9 (6.3-8.2) g/dL Albumin 4.8 (3.5-5.0) g/dL Current Medications Generic Name Dose Route Start Last Admin Trade Name Jordan PRN Reason Stop Dose Admin Aripiprazole 5 mg 10/31/23 21:00 10/31/23 21:10 Aripiprazole 5 Mg Tab PO 5 mg HS KAMLESH Administration Citalopram Hydrobromide 20 mg 10/31/23 21:00 10/31/23 21:10 Citalopram Hydrobromide 20 Mg Tab PO 20 mg HS KAMLESH Administration Diltiazem HCl 120 mg 10/31/23 21:00 10/31/23 21:10 Diltiazem Oral 60 Mg Tab PO 120 mg HS KAMLESH Administration Losartan Potassium 50 mg 10/31/23 21:00 10/31/23 21:10 Losartan 50 Mg Tab PO 50 mg HS KAMLESH Administration Naloxone HCl 0.2 mg 10/31/23 17:06 Naloxone 0.4 Mg/Ml 1 Ml Vial IV Q2M PRN Opioid Reversal Intake and Output 10/31/23 11/01/23 11/01/23 22:59 06:59 14:59 Other: # Voids 1 2 Weight 127.006 kg 10/31/23 14:02 10/31/23 14:02
--- NOTE | 2023-11-01 12:14 | P.HPIM ---
History of Present Illness H&P Date: 11/01/23 History of present illness; patient is a 48-year-old gentleman with past medical history significant for hypertension, anxiety who presented to the ER because of chest pain. Patient said that he was all right till Monday when he started experiencing intermittent episodes of chest pain. Chest pain was left-sided, sharp, lasts only a few minutes and radiates down his left arm. Patient was complaining of shortness of breath associated with this chest pain. There was no aggravating or relieving factor associated chest pain. Denies any palpitations. There is no complaint of orthopnea or PND. Denies any fever or chills. Because of the chest pain, patient came to the ER Initial lab work done in the ER showed WBC 9.4, hemoglobin 16.9, platelet count 296, sodium 130, potassium 5.6, BUN 13, creatinine 0.66, troponin 0.012 Influenza A not detected Influenza B not detected RSV not detected COVID-19 not detected EKG done in the ER showed heart rate of97 , no ST segment elevation or depress ion seen, no T-wave inversions seen. Chest x-ray done in the ER no acute cardiopulmonary process Patient admitted to internal medicine service REVIEW OF SYSTEMS: CONSTITUTIONAL: No fever, no malaise, no fatigue. HEENT: No recent visual problems or hearing problems. Denied any sore throat. CARDIOVASCULAR: As mentioned in HPI PULMONARY: As mentioned in HPI GASTROINTESTINAL: No diarrhea, no nausea, no vomiting, no abdominal pain. NEUROLOGICAL: No headaches, no weakness, no numbness. HEMATOLOGICAL: Denies any bleeding or petechiae. GENITOURINARY: Denies any burning micturition, frequency, or urgency. MUSCULOSKELETAL/RHEUMATOLOGICAL: Denies any joint pain, swelling, or any muscle pain. ENDOCRINE: Denies any polyuria or polydipsia. The rest of the 14-point review of systems is negative. PHYSICAL EXAMINATION: GENERAL: The patient is alert and oriented x3, not in any acute distress. Well developed, well nourished. HEENT: Pupils are round and equally reacting to light. EOMI. No scleral icterus. No conjunctival pallor. Normocephalic, atraumatic. No pharyngeal erythema. No thyromegaly. CARDIOVASCULAR: S1 and S2 present. No murmurs, rubs, or gallops. PULMONARY: Chest is clear to auscultation, no wheezing or crackles. ABDOMEN: Soft, nontender, nondistended, normoactive bowel sounds. No palpable organomegaly. MUSCULOSKELETAL: No joint swelling or deformity. EXTREMITIES: No cyanosis, clubbing, or pedal edema. NEUROLOGICAL: Gross neurological examination did not reveal any focal deficits. SKIN: No rashes. Assessment and plan Chest pain, rule out acute coronary syndrome Hypertension Anxiety Monitor vital signs Monitor CBC Monitor CMP Continue telemetry monitoring Ordered serial troponin Ordered serial EKGs Ordered 2D echo Order D-dimer Ordered lipid panel ordered HbA1c level Resume home medicine consult cardiology Labs and medication were reviewed.. Continue same treatment. Continue with symptomatic treatment. Resume home medication. Monitor labs and vitals. DVT and GI prophylaxis. Further recommendations as per clinical course of the patient Dictation was produced using [employer] dictation software. please excuse any grammatical, word or spelling errors. Past Medical History Past Medical History: Atrial Fibrillation, Hypertension Additional Past Medical History / Comment(s): brain anuerysm (pt states they are monitoring outpatient) History of Any Multi-Drug Resistant Organisms: None Reported Past Surgical History: Back Surgery Past Psychological History: Anxiety, Bipolar, Depression, PTSD Smoking Status: Former smoker, Vaper Past Alcohol Use History: None Reported Past Drug Use History: Marijuana Additional Drug Use History / Comment(s): edibles Medications and Allergies Home Medications Medication Instructions Recorded Confirmed Type Citalopram Hydrobromide [CeleXA] 20 mg PO HS 07/27/23 10/31/23 History ARIPiprazole [Abilify] 5 mg PO HS 10/31/23 10/31/23 History Losartan [Cozaar] 50 mg PO HS 10/31/23 10/31/23 History dilTIAZem HCL 120 mg PO HS 10/31/23 10/31/23 History Allergies Allergy/AdvReac Type Severity Reaction Status Date / Time No Known Allergies Allergy Verified 10/31/23 16:10 Physical Exam Vitals: Vital Signs Temp Pulse Pulse Resp BP BP Pulse Ox 11/01/23 07:15 97.4 F L 72 17 122/80 94 L 11/01/23 02:18 97.6 F 79 16 121/79 98 10/31/23 20:35 98.2 F 90 16 123/82 96 10/31/23 20:00 100 20 155/87 96 10/31/23 19:10 93 16 159/97 95 10/31/23 17:10 80 20 130/97 98 10/31/23 16:33 81 18 118/90 97 10/31/23 15:49 139/96 10/31/23 15:18 81 16 168/122 95 10/31/23 15:05 98 16 167/109 98 10/31/23 13:54 98.2 F 100 18 139/96 97 Intake and Output 10/31/23 11/01/23 11/01/23 22:59 06:59 14:59 Other: # Voids 1 2 Weight 127.006 kg Results CBC & Chem 7: 11/01/23 05:43 11/01/23 05:43 Labs: Abnormal Lab Results - Last 24 Hours (Table) 10/31/23 11/01/23 11/01/23 Range/Units 14:02 05:43 05:43 WBC 10.42 H (4.50-10.00) X 10*3/uL Immature Gran # 0.06 H (0.00-0.04) X 10*3/uL Potassium 5.6 H (3.5-5.1) mmol/L Chloride 111 H (98-107) mmol/L Carbon Dioxide 18 L (22-30) mmol/L Glucose 105 H (74-99) mg/dL AST 36 H (14-35) U/L
[2023-11-01 14:40] VITALS: BP 140/78; PULSE 91; RESP 16; TEMP 98
--- NOTE | 2023-11-01 18:04 | CA ---
Stress Echo Report Azam Bullock Age: 48 Gender: M : 1975 Exam Date: 11/01/2023 11:08 Exam Location: [place] [facility] Ht (in): 70 Wt (lb): 280 Ordering Physician: Micki Raines Referring Physician: [id number] Risk Assessment Consultant: CHARLINE, Technologist Procedure CPT: Indication: Chest Pain ICD-9 Codes: Rhythm: Patient History: Chest pain and hypertension Cardiac Medications: Medications in past 24 hours: Contrast: Definity Stress Results Protocol: Teodoro Total dose(mL): 2 Exercise Duration (min:sec): 7:[address] Depression (mm): Angina Score: Tse Score: METS: 8.5 Resting HR: 77 Resting BP: 129 / 91 Peak HR: 149 Peak BP: 183 / 82 Max Predicted HR: 171 87 % Max Predicted HR Target HR: 145 Double Product: [id number] Stress Summary: BP Response: Reason for Termination: MAX EXERTION/TARGET HR Cardiac Symptoms: DIFFICULTY IN BREATHING ECG Analysis Resting ECG: Normal sinus rhythm normal axis normal intervals Stress ECG: Patient exercised on Teodoro protocol for 7 minutes achieving 85% of predicted maximal heart rate without chest pain or diagnostic ST segment depression Arrhythmia: Echo Analysis Resting Echo: Normal left ventricular size wall motion systolic function Peak Echo Analysis: Normal hyperdynamic response contrast was used for endocardial visualization MEASUREMENTS (Male/Female) Normal Values CONCLUSIONS Average exercise tolerance Negative stress test by EKG criteria Negative stress echo Dr. Young Salgado MD (Electronically Signed) Final Date: 01 November 2023 18:03
--- NOTE | 2023-11-01 18:05 | CA ---
Transthoracic Echo Report Name: Azam Bullock Age: 48 Gender: M : 1975 Exam Date: 11/01/2023 11:28 Exam Location: [place] [facility] Ht (in): 70 Wt (lb): 280 Ordering Physician: Micki Raines Attending/Referring Phys: [id number], Yanna Production Associate Lamar Jara, PATRICIA Procedure CPT: Indications: LVF Cardiac Hx: Technical Quality: Poor, Technically difficult study Contrast 1: Definity Total Dose (mL): 2 Contrast 2: Total Dose (mL): MEASUREMENTS (Male / Female) Normal Values 2D ECHO LV Diastolic Diameter PLAX 4.5 cm 4.2 - 5.9 / 3.9 - 5.3 cm LV Systolic Diameter PLAX 2.5 cm IVS Diastolic Thickness 1.3 cm 0.6 - 1.0 / 0.6 - 0.9 cm LVPW Diastolic Thickness 1.2 cm 0.6 - 1.0 / 0.6 - 0.9 cm LV Relative Wall Thickness 0.5 RV Internal Dim ED PLAX 3.2 cm LA Systolic Diameter LX 4.1 cm 3.0 - 4.0 / 2.7 - 3.8 cm LA Volume 41.6 cm??? 18 - 58 / 22 - 52 cm??? LA Volume Index 16.2 cm???/m??? 16 - 28 cm???/m??? M-MODE Aortic Root Diameter MM 3.3 cm LA Systolic Diameter MM 4.2 cm LA Ao Ratio MM 1.3 AV Cusp Separation MM 2.1 cm DOPPLER MV Area PHT 2.5 cm??? Mitral E Point Velocity 61.2 cm/s Mitral A Point Velocity 60.7 cm/s Mitral E to A Ratio 1.0 MV Deceleration Time 300.3 ms FINDINGS Left Ventricle Left ventricular ejection fraction is estimated at 60-65%. Mildly increased septal wall thickness. No obvious regional wall motion abnormalities. Left ventricular cavity size normal. Right Ventricle Normal right ventricular size and function. Unable to estimate the right ventricular systolic pressure. Right Atrium Normal right atrial size. Left Atrium Mildly increased left atrial diameter. Mitral Valve Structurally normal mitral valve. Trace mitral regurgitation. No mitral stenosis. Aortic Valve Trileaflet aortic valve. No aortic valve stenosis or regurgitation. Tricuspid Valve Structurally normal tricuspid valve. Trace tricuspid regurgitation. No tricuspid stenosis. Pulmonic Valve Structurally normal pulmonic valve. No pulmonic stenosis. Trace pulmonic regurgitation. Pericardium No pericardial or pleural effusion. Echo free space anterior to the right ventricle likely represents a fat pad. Aorta Normal size aortic root and proximal ascending aorta. CONCLUSIONS Normal LV function Previewed by: Dr. Young Salgado MD (Electronically Signed) Final Date: 01 November 2023 18:04
--- NOTE | 2023-11-02 10:00 | P.DS ---
Providers Date of admission: 10/31/23 16:11 Expected date of discharge: 11/01/23 Attending physician: Juan Lafleur MD Consults: 10/31/23 17:06 Consult Physician Routine Consulting Provider: Hiram Vital Consult Reason/Comments: chest pain, HTN Do you want consulting provider notified?: Yes Primary care physician: Harsh[facility] Course: Discharge diagnoses; Chest pain, acute coronary syndrome ruled out Hypertension Anxiety Hospital course; patient is a 48-year-old gentleman with past medical history significant for hypertension, anxiety who presented to the ER because of chest pain. Patient said that he was all right till Monday when he started experiencing intermittent episodes of chest pain. Chest pain was left-sided, sharp, lasts only a few minutes and radiates down his left arm. Patient was complaining of shortness of breath associated with this chest pain. There was no aggravating or relieving factor associated chest pain. Denies any palpitations. There is no complaint of orthopnea or PND. Denies any fever or chills. Because of the chest pain, patient came to the ER Initial lab work done in the ER showed WBC 9.4, hemoglobin 16.9, platelet count 296, sodium 130, potassium 5.6, BUN 13, creatinine 0.66, troponin 0.012 Influenza A not detected Influenza B not detected RSV not detected COVID-19 not detected EKG done in the ER showed heart rate of97 , no ST segment elevation or depression seen, no T-wave inversions seen. Chest x-ray done in the ER no acute cardiopulmonary process Patient admitted to internal medicine service Patient was seen by cardiology, they ordered stress test which was negative for any ischemia. 2D echo done showed normal LV function. Cardiology cleared the patient for discharge PHYSICAL EXAMINATION: GENERAL: The patient is alert and oriented x3, not in any acute distress. Well developed, well nourished. HEENT: Pupils are round and equally reacting to light. EOMI. No scleral icterus. No conjunctival pallor. Normocephalic, atraumatic. No pharyngeal erythema. No thyromegaly. CARDIOVASCULAR: S1 and S2 present. No murmurs, rubs, or gallops. PULMONARY: Chest is clear to auscultation, no wheezing or crackles. ABDOMEN: Soft, nontender, nondistended, normoactive bowel sounds. No palpable organomegaly. MUSCULOSKELETAL: No joint swelling or deformity. EXTREMITIES: No cyanosis, clubbing, or pedal edema. NEUROLOGICAL: Gross neurological examination did not reveal any focal deficits. SKIN: No rashes. Dictation was produced using [employer] dictation software. please excuse any grammatical, word or spelling errors. Patient Condition at Discharge: Good Plan - Discharge Summary New Discharge Prescriptions: Continue Citalopram Hydrobromide [CeleXA] 20 mg PO HS Losartan [Cozaar] 50 mg PO HS ARIPiprazole [Abilify] 5 mg PO HS dilTIAZem HCL 120 mg PO HS Discharge Medication List Citalopram Hydrobromide [CeleXA] 20 mg PO HS 07/27/23 [History] ARIPiprazole [Abilify] 5 mg PO HS 10/31/23 [History] Losartan [Cozaar] 50 mg PO HS 10/31/23 [History] dilTIAZem HCL 120 mg PO HS 10/31/23 [History] Follow up Appointment(s)/Referral(s): [facility],Clinic [REFERRING] - 1-2 days Patient Instructions/Handouts: Chest Pain (ED) Discharge Disposition: HOME SELF-CARE
== END 2023-11-01 18:32 | disposition home or self-care (01) ==
LOC: EC 13:49 → 6NMEDSUR 16:11
PROVIDERS: ADMIT Internal Medicine; ATTEND Internal Medicine
DX: R07.89 Other chest pain (principal); I10 Essential (primary) hypertension; I48.91 Unspecified atrial fibrillation; E87.5 Hyperkalemia; M79.602 Pain in left arm; R00.0 Tachycardia, unspecified; F41.9 Anxiety disorder, unspecified; F17.290 Nicotine dependence, other tobacco product, uncomplicated; Z79.899 Other long term (current) drug therapy; Z11.52 Encounter for screening for COVID-19; Z11.59 Encounter for screening for other viral diseases
CPT/HCPCS: 96374; 99285; 36415; 93005 ×2; 93306; 93351; 85379; 80053 ×2; 83735; 84484; 85025 ×2; 85610; 85730; 87636; 71046; G0378 ×2; Q9957

== ENCOUNTER → 2024-06-14 | Outpatient (CLI) | payer OTHER ==
--- NOTE | 2024-06-14 18:52 | MR ---
EXAMINATION TYPE: MR lumbar spine wo con DATE OF EXAM: 06/14/2024 6:27 PM COMPARISON: None. CLINICAL INDICATION: Male, 49 years old with history of M54.16 RADICULOPATHY, LUMBAR REGION, Lower ba ck pain, LLE radic, hx surgery. IV Contrast: cc (None if empty) TECHNIQUE: Multiplanar, multisequence images of the lumbar spine were acquired without IV contrast. L1-L2: Normal disc appearance without desiccation. No herniation, protrusion or disc bulging. No ca nal stenosis is present. Foramina are patent bilaterally. L2-L3: Normal disc appearance without desiccation. No herniation, protrusion or disc bulging. No ca nal stenosis is present. Foramina are patent bilaterally. L3-L4: Mild disc desiccation noted. No herniation, protrusion or disc bulging. No canal stenosis is present. Foramina are patent bilaterally. L4-L5: Mild disc desiccation noted. No herniation, protrusion or disc bulging. No canal stenosis is present. Foramina are patent bilaterally. L5-S1: Severe disc desiccation noted. Left paracentral disc herniation with effacement of the ventral thecal sac and probable intermittent left lateral recess stenosis. No evidence for central stenosis. Small extruded component is difficult to exclude extending posterior to the L5 vertebral segment. Th ere is grade 1 retrolisthesis of L5 on S1 of 6 mm. Lumbar segments are intact. No paraspinal masses are identified. Conus medullaris has a normal appe arance. IMPRESSION: 1. Severe Degenerative disc disease with left paracentral disc herniation at L5-S1 as discussed above . [facility], , 06/14/2024 6:50 PM
== END | disposition home or self-care (01) ==
LOC: RADMRIMAIN 17:52
PROVIDERS: ATTEND Specialist
DX: M51.17 Intervertebral disc disorders with radiculopathy, lumbosacral region (principal)
CPT/HCPCS: 72148

== ENCOUNTER → 2024-07-11 | Outpatient (CLI) | payer OTHER ==
[2024-07-11 11:14] VITALS: BP 199/126; PULSE 84; RESP 16; TEMP 96.6
--- NOTE | 2024-07-11 14:22 | P.PAINPG ---
PQRS Measure Charge Sheet Comment: HISTORY OF PRESENT ILLNESS: A 49 yr old male presents today w severe and chronic LBP > 3 mo secondary to radiculopathy, spondylosis and facet arthropathy without myelopathy for evaluation. Pt states pain level is provoked at 6 /10 in intensity, intermittent, localized in the lumbar spine, predominantly axial, stabbing in character w occasional shooting pain towards the buttock, L hip and LLE. Pain is provoked by lifting, twisting, over activity. Pain is alleviated by PT in 2015, heat, ice, medications, repositioning and rest . Interventional procedures include Medications include Neurontin, Ibu, Cannabis use REVIEW OF ORGAN SYSTEMS: CONSTITUTIONAL: No fevers or chills. No recent weight loss. NEUROLOGICAL: + numbness and tingling along the distal extremities. No seizure disorders or headaches. MUSCULOSKELETAL: + pain PSYCHIATRIC: Denies current depression or suicidal thoughts. Physical Examinations : Constitutional : Cooperative , not in acute distress . Neurologic : Cranial nerve II to XII intact. No focal neurological deficits. Psychiatric : alert & oriented x 3. Matching mood & appropriate affect. Judgment & insight intact. Musculoskeletal : Cervical Spine Motor strength in the deltoid and biceps: Normal right side. Normal Left side Motor strength biceps and the wrist extensors: Normal right side . Normal left side Motor strength in the triceps muscle: Normal right side. Normal left side Deep tendon reflexes: Normal at the biceps. Normal at Brachioradialis. Normal at triceps Vertebral body tenderness to deep palpation over Cervical facet loading test: positive bilaterally Spurling test: positive bilaterally Neck distraction test: positive bilaterally Juan sign: positive bilaterally Lumbar spine Motor strength lower extremities ,thigh and legs 5/5 Right side , 5/5 Left side Deep tendon reflexes : Normal Knee Jerk. Normal Ankle Jerk Vertebral body tenderness over L5 Garcia Test positive L L5-S1 Lumbar facet Loading Test: positive Right / positive Left Range of motion of the lumbar spine Flexion 30 degrees, extension 10 degrees Straight Leg Raise test: Left/ Right positive at degrees Kaela test: positive right / positive left. Severe tenderness over the Sacroiliac joint on the Right / Left sides Gaenslen test: positive bilaterally Seated flexion test: positive bilaterally. Sacral spine : Severe tenderness over the Sacroiliac joint: right side / left side Range of motion: Flexion of the lumbar spine <60 degrees Range of motion: Extension of the lumbar spine <20 degrees Gaenslen's Test positive Kaela test: positive right side / left side Thigh Thrust Test Sacral Thrust Test Imaging: MRI noncontrast of the lumbar spine from 06/14/2024 reviewed Assessment/ Plan : L L5-S1 paracentral radiculopathy Recommendation of L TFESI L5-S1 #1 and Flexeril 10mG #60 w 1 RF. Risks, benefits of procedure discussed and patient verbalized understanding. Protocol for discontinuation/continuation of medication surrounding procedure discussed. Minimal anesthesia including Fentanyl and Versed if clinically indicated. Use, side effects, adverse reactions and safe storage discussed. All questions answered. I have spent greater than 30 minutes on patient care today. Dr Fritz was available by phone for the evaluation of this patient. The time was used to review the medical records including relevant urine studies and Prescription history (MAPs), review of the available imaging, evaluation and examination of the patient, coordination of care with the medical staff and if applicable referring physicians, as well as creation of the medical record PQRS Narrative: Hx Alcohol Use (MH) No Home Medications: Ambulatory Orders Citalopram Hydrobromide [CeleXA] 20 mg PO HS 07/27/23 ARIPiprazole [Abilify] 5 mg PO HS 10/31/23 Losartan [Cozaar] 50 mg PO HS 10/31/23 dilTIAZem HCL 120 mg PO HS 10/31/23 Cyclobenzaprine [Flexeril] 10 mg PO BID 30 Days #60 tab 07/11/24 Controlled Substance Measures - Controlled Substance Measures Is patient prescribed a controlled substance at discharge?: No
== END | disposition home or self-care (01) ==
LOC: PNWHC3 10:09
PROVIDERS: ATTEND Specialist
DX: M47.27 Other spondylosis with radiculopathy, lumbosacral region (principal); F12.90 Cannabis use, unspecified, uncomplicated
CPT/HCPCS: 99211

== ENCOUNTER 2024-07-16 09:26 | Day surgery (SDC) | payer OTHER ==
[2024-07-12 15:23] VITALS: BMI 41.8
[2024-07-16] MEDS ORDERED: LACTATED RINGERS 1,000 ML IV SCH (09:42)
[2024-07-16 10:00] VITALS: TEMP 98.4
[2024-07-16] MEDS ORDERED: methylPREDNISolone ACETATE 80 MG/ML 1 ML VIAL ONE (10:30)
[2024-07-16] MEDS ORDERED: IOPAMIDOL M200 10 ML VIAL ONE (10:30)
--- NOTE | 2024-07-16 10:44 | P.PCN ---
Date of Procedure: 07/16/24 Procedure(s) Performed: PREOPERATIVE DIAGNOSIS: 1-Lumbar radiculopathy . 2-lumbar herniated disc disease. 3-lumbar spinal stenosis POSTOPERATIVE DIAGNOSIS: 1-lumbar radiculopathy. 2-lumbar Herniated disc disease. 3-lumbar spinal stenosis PROCEDURE 1. Transforaminal epidural steroid injection under fluoroscopic guidance at left L5-S1 level. (Fluoroscopy images stored on file in the radiology Department ) 2. Lumbar epidurogram . ANESTHESIA: Local with 1% lidocaine 3 ml. EBL: Minimal PROCEDURE INDICATION: The patient with low back pain and radiculopathy symptoms unresponsive to conservative treatment. PROCEDURE DESCRIPTION / TECHNIQUE: The patient was seen and identified in the preoperative area. Risks, benefits, complications, and alternatives were discussed with the patient. The patient agreed to proceed with the procedure and signed the consent. IV was started, and vital signs were stable. Patient was taken to the OR and time out was completed. The patient was placed in the prone position on procedure table and a pillow was placed under the abdomen to reduce lumbar lordosis. The lumbosacral area was prepped and draped in the usual sterile fashion. Critical pause was taken. Vital signs were closely monitored during the procedure. Using oblique fluoroscopy, the chin of the ``To dog at left L5-S1 level was identified, and the skin and deeper tissues just below was localized with 1% lidocaine. Subsequently, a 22-gauge 5-inch spinal needle was advanced under a tu nneled view fluoroscopic guidance just underneath the chin of the `Leniny dog at the left L5-S1 Under lateral fluoroscopy, the needle was then advanced to the posterior border of the interforaminal space. After negative aspiration of CSF and blood and with no paresthesias, 1 mL Isovue 200 contrast dye was injected excellent epidurogram and outlining of the nerve root Subsequently, 3 mL of block solution containing 80 mg Depo-Medrol and 2 mL of 0.9% normal saline PF was injected. Needle was removed . At the end of the procedure, skin was cleansed, and bandages were applied. COMPLICATIONS:none DISPOSITION / PLANS: The patient was placed in a supine position and transferred to the recovery area in a stable condition for observation. There was no evidence of lower extremity motor or sensory deficit after the procedure. Patient was discharged from the recovery room after meeting discharge criteria. Home discharge instructions were given to the patient by the staff. The patient was reexamined prior to discharge.
--- NOTE | 2024-07-16 11:10 | FL ---
EXAMINATION TYPE: FL guided pain mgmt statistic DATE OF EXAM: 07/16/2024 CLINICAL INDICATION: Male, 49 years old with history of M54.16 TRANSFORAMINAL; PH[facility], pain TECHNIQUE: Fluoroscopy. COMPARISON: None. FINDINGS: Fluoroscopic guidance was provided during pain relief procedure performed by Dr. Fritz . A total of 26.7 seconds of fluoroscopic time was utilized during the procedure and one image was a cquired. Image acquired shows needle localization at L5 level. Degeneration changes of the visualized joints. Total DAP: 0.31952 mGym2. IMPRESSION: As Above. [facility], , 07/16/2024 11:08 AM
[2024-07-16 11:27] VITALS: BP 127/82; PULSE 87; RESP 18
== END 2024-07-16 11:27 | disposition home or self-care (01) ==
LOC: ORPAIN 09:26
PROVIDERS: ATTEND Specialist
DX: M48.061 Spinal stenosis, lumbar region without neurogenic claudication (principal); M51.16 Intervertebral disc disorders with radiculopathy, lumbar region
CPT/HCPCS: 64483; Q9966; J1010

== ENCOUNTER → 2024-08-07 | Outpatient (CLI) | payer OTHER ==
[2024-08-07 09:48] VITALS: BP 134/84; PULSE 62; RESP 17; TEMP 98.2
--- NOTE | 2024-08-07 16:48 | P.PAINPG ---
PQRS Measure Charge Sheet Comment: HISTORY OF PRESENT ILLNESS: A 49 yr old male presents today w severe and chronic LBP > 3 mo secondary to radiculopathy, spondylosis and facet arthropathy without myelopathy for evaluation s/p L TFESI L5-S1 #1. Pt states he experienced 50 % pain relief x 3 wks s/p procedure. Pt states pain level is provoked at 7-8 /10 in intensity, intermittent, localized in the lumbar spine, predominantly axial, stabbing in character w occasional shooting pain towards the buttock, L hip and LLE. Pain is provoked by lifting, twisting, over activity. Pain is alleviated by PT in 2015, heat, ice, medications, repositioning and rest . Interventional procedures include L TFESI L5-S1 x1 Medications include Neurontin, Ibu, Cannabis use REVIEW OF ORGAN SYSTEMS: CONSTITUTIONAL: No fevers or chills. No recent weight loss. NEUROLOGICAL: + numbness and tingling along the distal extremities. No seizure disorders or headaches. MUSCULOSKELETAL: + pain PSYCHIATRIC: Denies current depression or suicidal thoughts. Physical Examinations : Constitutional : Cooperative , not in acute distress . Neurologic : Cranial nerve II to XII intact. No focal neurological deficits. Psychiatric : alert & oriented x 3. Matching mood & appropriate affect. Judgment & insight intact. Musculoskeletal : Cervical Spine Motor strength in the deltoid and ced ps: Normal right side. Normal Left side Motor strength biceps and the wrist extensors: Normal right side . Normal left side Motor strength in the triceps muscle: Normal right side. Normal left side Deep tendon reflexes: Normal at the biceps. Normal at Brachioradialis. Normal at triceps Vertebral body tenderness to deep palpation over Cervical facet loading test: positive bilaterally Spurling test: positive bilaterally Neck distraction test: positive bilaterally Juan sign: positive bilaterally Lumbar spine Motor strength lower extremities ,thigh and legs 5/5 Right side , 5/5 Left side Deep tendon reflexes : Normal Knee Jerk. Normal Ankle Jerk Vertebral body tenderness over L5 Garcia Test positive L L5-S1 Lumbar facet Loading Test: positive Right / positive Left Range of motion of the lumbar spine Flexion 30 degrees, extension 10 degrees Straight Leg Raise test: Left/ Right positive at degrees Kaela test: positive right / positive left. Severe tenderness over the Sacroiliac joint on the Right / Left sides Gaenslen test: positive bilaterally Seated flexion test: positive bilate rally. Sacral spine : Severe tenderness over the Sacroiliac joint: right side / left side Range of motion: Flexion of the lumbar spine <60 degrees Range of motion: Extension of the lumbar spine <20 degrees Gaenslen's Test positive Kaela test: positive right side / left side Thigh Thrust Test Sacral Thrust Test Imaging: MRI noncontrast of the lumbar spine from 06/14/2024 reviewed Assessment/ Plan : L L5-S1 paracentral radiculopathy Recommendation of L paramedian TJ L5-S1 #1 and Flexeril 10mg #60 w 1 RF. Risks, benefits of procedure discussed and patient verbalized understanding. Protocol for discontinuation/continuation of medication surrounding procedure discussed. Minimal anesthesia including Fentanyl and Versed if clinically indicated. Use, side effects, adverse reactions and safe storage discussed. All questions answered. I have spent greater than 30 minutes on patient care today. Dr Fritz was available by phone for the evaluation of this patient. The time was used to review the medical records including relevant urine studies and Prescription his tory (MAPs), review of the available imaging, evaluation and examination of the patient, coordination of care with the medical staff and if applicable referring physicians, as well as creation of the medical record - Pain Location Lower Back Non-Pharmacological Interventions: Heat, Ice, Relaxation Technique Pharmacological Interventions: Medication, Topical Medication PQRS Narrative: Hx Alcohol Use (MH) No Home Medications: Ambulatory Orders Citalopram Hydrobromide [CeleXA] 20 mg PO HS 07/27/23 ARIPiprazole [Abilify] 5 mg PO HS 10/31/23 Losartan [Cozaar] 50 mg PO HS 10/31/23 dilTIAZem HCL 120 mg PO HS 10/31/23 Cyclobenzaprine [Flexeril] 10 mg PO BID PRN 07/12/24 Ibuprofen [Motrin] 600 mg PO Q8HR PRN 07/12/24 Mirabegron [Myrbetriq] 50 mg PO HS 07/12/24 Rizatriptan Odt [[facility]] 10 mg PO DIRECTED PRN 07/12/24 Cyclobenzaprine [Flexeril] 10 mg PO BID PRN 30 Days #60 tab 08/07/24 Controlled Substance Measures - Controlled Substance Measures Is patient prescribed a controlled substance at discharge?: No
== END ==
LOC: PNWHC3 09:31
PROVIDERS: ATTEND Specialist
DX: M47.27 Other spondylosis with radiculopathy, lumbosacral region (principal); F12.90 Cannabis use, unspecified, uncomplicated
CPT/HCPCS: 99212

== ENCOUNTER 2024-08-13 12:44 | Day surgery (SDC) | payer OTHER ==
[2024-08-12 14:46] VITALS: BMI 41.8
[2024-08-13] MEDS ORDERED: LACTATED RINGERS 1,000 ML IV SCH (13:00)
[2024-08-13 13:06] VITALS: TEMP 97
[2024-08-13] MEDS ORDERED: methylPREDNISolone ACETATE 80 MG/ML 1 ML VIAL ONE (14:07)
[2024-08-13] MEDS ORDERED: IOPAMIDOL M200 10 ML VIAL ONE (14:07)
--- NOTE | 2024-08-13 14:13 | P.PCN ---
Date of Procedure: 08/13/24 Procedure(s) Performed: PREOPERATIVE DIAGNOSIS: 1-Lumbar radiculopathy . 2-lumbar herniated disc disease. 3-lumbar spinal stenosis POSTOPERATIVE DIAGNOSIS: 1-lumbar radiculopathy. 2-lumbar Herniated disc disease. 3-lumbar spinal stenosis PROCEDURE 1. Lumbar epidural steroid injection under fluoroscopic guidance at the L5-S1 level. (Fluoroscopy imaging was available in radiology department) 2. Lumbar epidurogram. ANESTHESIA: Lidocaine 1% 3 and then only. EBL: Minimal PROCEDURE INDICATION: The patient with low back pain and radiculitis symptoms unresponsive to conservative treatment. Fluoroscopy was used to optimize visualization of the needle placement and to maximize safety. PROCEDURE DESCRIPTION / TECHNIQUE: The patient was seen and identified in the preoperative area. Risks, benefits, complications including but not limited to infections ,bleeding ,allergic reaction to the medications ,nerve damage and not complete pain releife , and alternatives were discussed with the patient. The patient agreed to proceed with the procedure and signed the consent, and vital signs were stable. Patient was taken to the OR and time out was completed. The patient was placed in the prone position on procedure table and a pillow was placed under the abdomen to reduce lumbar lordosis. The lumbosacral area was prepped and draped in the usual sterile fashion.ere closely monitored during the procedure. Vital signs was monitered during the entire procedure. Using anterior-posterior fluoroscopy, the L5-S1 interlaminar space was identified and the skin over this site was marked and then infiltrated with 1% lidocaine subcutaneously. Subsequently, 18 -gauge 6 inches long Tuohy epidural needle was inserted and advanced toward the epidural space using the ``Loss of resistance technique and guided by AP and lateral fluoroscopy. The correct needle position in the epidural space was verified with the injection of 2 mL of the water soluble contrast dye Isovue 200 contrast and observing an excellent epidurogram with the epidural spread of the dye, after negative aspiration for blood and CSF and in the absence of paresthesias. Again after negative aspiration, a 6 ml mixture containing 80 mg of Depo-medrol ( Preservetive Free ), and 2 ml of preservative free Normal Saline, and 2 ml of preservative free lidocaine 1% solution was injected and a washout of epidurogram was seen. Needle was withdrawn intact, skin was cleansed, and bandages were applied. COMPLICATIONS: None DISPOSITION / PLANS: The patient was placed in a supine position and transferred to the recovery area in a stable condition for observation. There was no evidence of lower extremity motor or sensory deficit after the procedure. Patient was discharged from the recovery room after meeting discharge criteria. Home discharge instructions were given to the patient by the staff. The patient was reexamined prior to discharge. The patient will schedule a follow up in the clinic in 2-4 weeks.
[2024-08-13 14:20] VITALS: PULSE 66
[2024-08-13 14:32] VITALS: BP 123/84; RESP 16
--- NOTE | 2024-08-13 14:35 | FL ---
EXAMINATION TYPE: FL guided pain mgmt statistic Intraoperative/procedural fluoroscopic services were provided. CLINICAL INDICATION:Male, 49 years old with history of LESI; , [facility] FINDINGS: Fluoroscopic image demonstrating lumbar epidural steroid injection. No radiographic evidence for comp lication. Total fluoroscopy time is 5.5 seconds. DAP: [id number] mGym2 Please see the operative/procedural note for further details. [facility], , 08/13/2024 2:32 PM
== END 2024-08-13 14:47 | disposition home or self-care (01) ==
LOC: ORPAIN 12:44
PROVIDERS: ATTEND Specialist
DX: M51.16 Intervertebral disc disorders with radiculopathy, lumbar region (principal); M48.061 Spinal stenosis, lumbar region without neurogenic claudication; Z79.1 Long term (current) use of non-steroidal anti-inflammatories (NSAID)
CPT/HCPCS: 62323; Q9966; J1010